=== PATIENT | female | born 1965 | race African-American/Black ===

== ENCOUNTER → 2017-05-14 | Day surgery (SDC) | payer OTHER ==
[~2017-05-14] MED LIST: ALBUTEROL17 GM INH; ARIPIPRAZOLE15 MG; BREO ELLIPTA 11 EACH INH; CELEXA20 MG PO; ESTRADIOL1 MG PO; GABAPENTIN600 MG PO; HYDROXYZINE HCL25 M1 DOB; MAGNESIUM500 MG PO; MIRTAZAPINE45 M1 PO; PAXIL40 MG PO; PRINIVIL20 M1 PO; SYMBICORT INH; TOPAMAX200 MG PO; VITAMIN B-12250 MCG PO; ZESTORETIC 20-1 EAC1 PO
--- NOTE | ~2017-05-14 | OR ---
Unit #: [id number] #: [id number] Patient: ADRIANA ORTIZ [id number] [address] [address] [id number] O MR#: [id number] NAME: ADRIANA ORTIZ. ROOM: Date of Procedure: 05/14/2017 Admission Date: 05/14/2017 Surgeon: Junior Stringer M.D. : 1965 Attending Physician: Junior Stringer M.D. Primary Care Physician: [facility] OPERATIVE REPORT PROCEDURE PERFORMED Colonoscopy to cecum. INDICATIONS FOR PROCEDURE The patient's mother with colon cancer, undergoing colonoscopy for high risk for colorectal cancer. MEDICATIONS Monitored anesthesia. POSTOPERATIVE FINDINGS 1. Colonoscopy completed to cecum. Prep was good. No polyps, masses, or colitis. 2. Internal hemorrhoids noted. PLAN Given her mother's history, I would recommend a repeat colonoscopy in 5 years. DESCRIPTION OF PROCEDURE The patient was explained of the procedure, risks, and benefits along with the risks and benefits of anesthesia. She was brought to the endoscopy room. Propofol anesthesia was given. Rectal exam was done, which was normal. Colonoscope was lubricated, passed up the rectum, advanced under direct vision all the way to the cecum. Cecum was identified by ileocecal valve and appendiceal orifice. I then started to pull the scope out carefully looking. No polyps, masses, or colitis was seen. I retroflexed in the rectum, small hemorrhoids were seen. The scope was gently pulled out. She tolerated it well. No major complications were seen. Dictated by... Uma Walker/iram TD: 05/14/2017 15:02 JOB #: [id number] CC: Sovera/invision Please Delete Unit #: [id number] #: [id number] Patient: ADRIANA ORTIZ OPERATIVE REPORT Page 1 of 1 X Junior Stringer MD X PROCEDURE OPERATIVE NOTE
== END | disposition home or self-care (01) ==
LOC: COPS 10:05
DX: Z12.11 Encounter for screening for malignant neoplasm of colon (principal); K64.8 Other hemorrhoids; I10 Essential (primary) hypertension; F32.9 Major depressive disorder, single episode, unspecified; J45.909 Unspecified asthma, uncomplicated; M19.90 Unspecified osteoarthritis, unspecified site; Z80.0 Family history of malignant neoplasm of digestive organs; Z79.51 Long term (current) use of inhaled steroids; Z79.899 Other long term (current) drug therapy; Z90.710 Acquired absence of both cervix and uterus; Z98.890 Other specified postprocedural states